=== PATIENT | female | born 1980 | race Caucasian/White ===

== ENCOUNTER 2018-10-05 16:16 | Emergency (ER) | payer SELFPAY ==
[~2018-10-05] VITALS: Ht 172.7 cm; Wt 64.9 kg
[2018-10-05] MEDS ORDERED: KETOROLAC 60 MG/2 ML VIAL. IM ONE (16:45)
--- NOTE | 2018-10-05 16:58 | PHYS DOC ---
Past History Past Medical History: Asthma, COPD, Pneumonia, Other Smoking: Cigarettes Alcohol Use: None Drug Use: None Adult General Chief Complaint Chief Complaint: HAND PROBLEM HPI HPI Patient is a 37 year old right handed female who presents with complaining of change of the color of her fingers. Patient states she had a fall 4 days ago and landed on hyperextended left hand and gradually developed change of the color of distal phalanx of the fourth and fifth finger of left hand pain with turning blue color. Patient states she was seen by her primary care physician and treated with Lortab but today she had change of the color of the second finger with partial change of color of third finger and her primary care physician recommended arterial ultrasound of her finger. Patient dates she is a smoking 1 pack for more than 20 years and tried to cut down on her smoking. Patient also had history of frostbite of fingers at childhood. Patient denies history of bleeding and . Patient rated her pain 10 over 10 and states she took Lortab this morning. Patient recently was treated for pneumonia with doxycycline and prednisone. Review of Systems Review of Systems Constitutional: Denies fever or chills [] Eyes: Denies change in visual acuity, redness, or eye pain [] HENT: Denies nasal congestion or sore throat [] Respiratory: Denies cough or shortness of breath [] Cardiovascular: No additional information not addressed in HPI [] GI: Denies abdominal pain, nausea, vomiting, bloody stools or diarrhea [] : Denies dysuria or hematuria [] Musculoskeletal: Denies back pain, reports joint pain [] Integument: Denies rash or skin lesions [] Neurologic: Denies headache, focal weakness or sensory changes [] Endocrine: Denies polyuria or polydipsia [] All other systems were reviewed and found to be within normal limits, except as documented in this note. Current Medications Current Medications Current Medications Medications (Trade) Dose Ordered Sig/Ema Start Time Stop Time Status Last Admin Dose Admin Ketorolac Tromethamine (Toradol Im) 60 mg 1X ONCE 10/05/18 16:45 10/05/18 16:49 DC Allergies Allergies Allergies Coded Allergies Type Severity Reaction Last Updated Verified No Known Drug Allergies 10/05/18 No Physical Exam Physical Exam Constitutional: Well developed, well nourished, mild distress, non-toxic appearance. [] HENT: Normocephalic, atraumatic. Eyes: PERRLA, EOMI, conjunctiva normal, no discharge. [] Neck: Normal range of motion, no tenderness, supple, no stridor. [] Cardiovascular:Heart rate regular rhythm, no murmur [] Lungs & Thorax: Bilateral breath sounds clear to auscultation [] Skin: Left hand with ecchymoses and contusion between second and third fingers web, cyanosis of distal phalanx of second, fourth and fifth finger with partial cyanosis of third finger tipon volar side and nailbed area with cooler fingers and pain and mild paresthesia, cap refill of 3-4 seconds, good left radial and ulnar pulses. Back: No tenderness, no CVA tenderness. [] Extremities:Left hand with ecchymoses and contusion between second and third fingers web, cyanosis of distal phalanx of second, fourth and fifth finger with partial cyanosis of third finger tipon volar side and nailbed area with cooler fingers and pain and mild paresthesia, cap refill of 3-4 seconds, good left radial and ulnar pulses. Neurologic: Alert and oriented X 3, normal motor function, normal sensory function, no focal deficits noted. [] Psychologic: Affect normal, judgement normal, mood normal. [] Current Patient Data Vital Signs Vital Signs Date Time Temp Pulse Resp B/P (MAP) Pulse Ox O2 Delivery O2 Flow Rate FiO2 10/05/18 16:25 97.8 80 18 100 Room Air EKG EKG [] Radiology/Procedures Radiology/Procedures [address] [address] IMAGING REPORT Signed PATIENT: QUAN SCHROEDER ACCOUNT: [id number] : 1980 LOCATION: ER AGE: 37 SEX: F EXAM STATUS: PRE ER ORD. PHYSICIAN: GAVINO REAVES MD REASON: injury PROCEDURE: HAND LEFT 3V EXAM: PA, oblique and lateral views of the left hand DATE: 10/05/2018 4:43 PM INDICATION: FELL TUESDAY, PATIENT'S 2ND,4TH AND 5TH DIGITS HAVE TURNED COLD AND BLUE/PURPLE, LIMITED FEELING IN FINGERS COMPARISON: No Prior FINDINGS: No evidence of acute fracture or dislocation. Decreased bone mineral density most prominent in a periarticular distribution. Joint space narrowing most prominent at the PIP joints of the left ring and middle fingers as well as the DIP joint left ring and small fingers. Equivocal erosion versus cystic change proximal phalanx left middle finger. IMPRESSION: 1. No evidence of acute fracture or dislocation. 2. 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 Although osteoarthritis may have similar appearance, inflammatory/erosive arthropathy may also have similar appearance. Electronically signed by: Juan Kelly MD (10/05/2018 4:56 PM) [facility] DICTATED AND SIGNED BY: JUAN KELLY MD DATE: 10/05/18 [id number] CC: WINIFRED VARGAS NP; GAVINO REAVES MD ~ [place] [address] IMAGING REPORT Signed PATIENT: QUAN SCHROEDER ACCOUNT: [id number] : 1980 LOCATION: ER AGE: 37 SEX: F EXAM STATUS: REG ER ORD. PHYSICIAN: GAVINO REAVES MD REASON: fingers change of color after fall PROCEDURE: UPPER EXT ARTERIAL LEFT Procedure: Left upper extremity arterial duplex imaging. Grayscale, color Doppler and spectral analysis were obtained. Indication: Trauma/injury with fingers turning purple. Finger pain.. Findings: Within the left upper extremity, there is no significant atheromatous plaque formatio. The Doppler velocities and waveforms of the left axillary, brachial, radial and ulnar arteries are normal. There is no evidence for significant stenosis or occlusion. Evaluation of the digital arteries was not able to be performed due to patient's pain. Impression: 1. No significant stenosis or occlusion of the left upper extremity arterial system. 2. The digital arteries of the left hand were unable to be evaluated/performed due to patient pain. Electronically signed by: Juan Kelly MD (10/05/2018 6:33 PM) [facility] DICTATED AND SIGNED BY: JUAN KELLY MD DATE: 10/05/18 569 CC: WINIFRED VARGAS NP; GAVINO REAVES MD ~ Course & Med Decision Making Course & Med Decision Making Pertinent Labs and Imaging studies reviewed. (See chart for details) Evaluation of patient in ER showed 37-year-old female patient with history of previous smoking presented with cyanosis of the fingertips for the last 4 days after a fall. She had cyanotic and cool fingers keeps in left hand with tenderness. Arterial ultrasound was not able to evaluate the fingers due to the patient pain but patient had good circulation in radial and ulnar artery at left wrist. Patient treated with Toradol without change of her pain and IV fluid , her pain, fentanyl and Zofran was started. On-call vascular surgeon at [facility], [place] Dr. Carr was consulted at 1824 and recommended to start vasodilator like nifedipine and Plavix and cheek sedimentation rate and EMILY. He emphasized on stop smoking and keeping the hand warm and follow up with vascular clinic at [phone]. After receiving fentanyl and Zofran and her. Patient had itching and hive in left forearm that improved with Benadryl. Dragon Disclaimer Dragon Disclaimer This electronic medical record was generated, in whole or in part, using a voice recognition dictation system. Departure Departure: Impression: Primary Impression: Arterial insufficiency Additional Impressions: Tobacco abuse Tobacco abuse counseling Hypokalemia Anemia Disposition: HOME, SELF-CARE (At 1900) Condition: IMPROVED Referrals: WINIFRED VARGAS [employer] (PCP) Patient Instructions: Anemia, FAQs, Contusion, Hypokalemia Additional Instructions: Quit smoking Keep left hands warm, wear gloves all the time Follow-up with vascular surgery clinic at [facility], [place] with , call [phone] to make an appointment in one or 2 days Drink plenty of liquids Follow-up with your primary care physician in 3-5 days Return to ER if not getting better Scripts Hydrocodone Bit/Acetaminophen (NORCO 5-325 TABLET) 1 Each Tablet 1 TAB PO PRN Q6HRS PRN for PAIN, #20 TAB 0 Refills Prov: GAVINO REAVES MD 10/05/18 Nifedipine (NIFEDIPINE ER) 30 Mg Tab.er.24 1 TAB PO DAILY for Vasodilator, #30 TAB 0 Refills Prov: GAVINO REAVES MD 10/05/18 Clopidogrel Bisulfate (PLAVIX) 75 Mg Tablet 1 TAB PO DAILY for vascular insufficiency, #30 TAB 0 Refills Prov: GAVINO REAVES MD 10/05/18 Problem Qualifiers Additional Impressions: Anemia Anemia type: unspecified type Qualified Codes: D64.9 - Anemia, unspecified GAVINO REAVES MD Oct 05, 2018 16:58
[2018-10-05] MEDS ORDERED: IV NORMAL SALINE 1,000ML 1,000 ML IV ONE (18:15)
[2018-10-05] MEDS ORDERED: HEPARIN for IV BOLUS 10,000 UNIT/10 ML VIAL. IV ONE (18:30)
[2018-10-05] MEDS ORDERED: ONDANSETRON PF 4 MG/2 ML VIAL. IV ONE (18:30)
--- NOTE | 2018-10-05 18:36 | RAD ---
Procedure: Left upper extremity arterial duplex imaging. Grayscale, color Doppler and spectral analysis were obtained. Indication: Trauma/injury with fingers turning purple. Finger pain.. Findings: Within the left upper extremity, there is no significant atheromatous plaque formatio. The Doppler velocities and waveforms of the left axillary, brachial, radial and ulnar arteries are normal. There is no evidence for significant stenosis or occlusion. Evaluation of the digital arteries was not able to be performed due to patient's pain. Impression: 1. No significant stenosis or occlusion of the left upper extremity arterial system. 2. The digital arteries of the left hand were unable to be evaluated/performed due to patient pain. Electronically signed by: Juan Cruz MD (10/05/2018 6:33 PM) [facility]
[2018-10-05 18:38] LABS: BASO # 0.1 x10^3/uL (0.0-0.2); BASO % 1 % (0-3); EOS # 0.4 x10^3/uL (0.0-0.7); EOS % 4 % (0-3); HEMATOCRIT 32.2 % (36.0-47.0); HEMOGLOBIN 10.5 g/dL (12.0-15.5); LYMPH # 3.4 x10^3/uL (1.0-4.8); LYMPH % 33 % (24-48); MEAN CORPUSCULAR HEMOGLOBIN 30 pg (25-35); MEAN CORPUSCULAR HGB CONC 33 g/dL (31-37); MEAN CORPUSCULAR VOLUME 93 fL (79-100); MONO # 0.7 x10^3/uL (0.0-1.1); MONO % 7 % (0-9); NEUT % 56 % (31-73); PLATELET COUNT 176 x10^3/uL (140-400); RED BLOOD COUNT 3.47 x10^6/uL (3.50-5.40); RED CELL DISTRIBUTION WIDTH 18.2 % (11.5-14.5); WHITE BLOOD COUNT 10.6 x10^3/uL (4.0-11.0)
[2018-10-05] MEDS ORDERED: diphenhydrAMINE 50 MG/ML VIAL IVP ONE (18:45)
[2018-10-05 18:51] LABS: ALBUMIN/GLOBULIN RATIO 0.9 (1.0-1.7); CALCIUM 8.3 mg/dL (8.5-10.1); CREATININE 0.7 mg/dL (0.6-1.0); GFR 94.2; POTASSIUM 3.3 mmol/L (3.5-5.1); TOTAL BILIRUBIN 0.2 mg/dL (0.2-1.0); TOTAL PROTEIN 6.2 g/dL (6.4-8.2)
[2018-10-05] MEDS ORDERED: NIFE30TA17 PO (18:51)
[2018-10-05] MEDS ORDERED: CLOP75TA57 PO (18:51)
[2018-10-05] MEDS ORDERED: HYDR-3165 PO (18:51)
[2018-10-05] MEDS ORDERED: MORPHINE SULFATE 4 MG/ML DISP.SYRIN. IV ONE (19:15)
[2018-10-05 20:14] VITALS: BP 130/61
[2018-10-09 20:07] LABS: ANA INTERP Negative (.)
== END 2018-10-05 19:44 | disposition home or self-care (01) ==
LOC: ER 16:16
DX: I77.1 Stricture of artery (principal); S60.222A Contusion of left hand, initial encounter; E87.6 Hypokalemia; D64.9 Anemia, unspecified; F17.210 Nicotine dependence, cigarettes, uncomplicated; Z71.6 Tobacco abuse counseling; J44.9 Chronic obstructive pulmonary disease, unspecified; W18.39XA Other fall on same level, initial encounter; Y93.89 Activity, other specified; Y92.89 Other specified places as the place of occurrence of the external cause; Y99.8 Other external cause status
CPT/HCPCS: 36415; 73130; 80053; 85025; 85610; 85651; 85730; 86038; 93931; 96372; 96374; 96375; 99284; J1200; J1644; J1885; J2270; J2405; J3010; J7030